=== PATIENT | female | born 1970 | race American Indian/Alaskan Native ===

== ENCOUNTER 2017-11-09 09:57 | Emergency (ER) | payer MEDICAID ==
[2017-11-09 09:58] VITALS: BMI 25.7
[2017-11-09 10:11] VITALS: RESP 20; O2SAT 99
--- NOTE | 2017-11-09 11:32 | C.PDOC ---
History Of Present Illness 47 y/o female with PMHx of hypertension presents to the ED complaining of right leg pain, ongoing for 1 year now. She also reports ecchymoses to the bilateral thighs, which she noticed yesterday upon waking up. Patient cannot recall any blunt trauma or mechanism of injury. She notes pain is radiating from the right hip down to the toes, which is unchanged for the past several months. Patient reports she was seen at [facility], and had negative x-rays. She is ambulatory and able to bear weight on both legs. Otherwise denies any changes in sensation, calf pain, chest pain, or SOB. Time Seen by Provider: 11/09/17 10:43 Chief Complaint (Nursing): Lower Extremity Problem/Injury History Per: Patient History/Exam Limitations: no limitations Onset/Duration Of Symptoms: Days Current Symptoms Are (Timing): Still Present Past Medical History Reviewed: Historical Data, Nursing Documentation, Vital Signs Vital Signs: Last Vital Signs Temp 98.6 F 11/09/17 11:51 Pulse 69 11/09/17 11:51 Resp 20 11/09/17 11:51 BP 117/79 11/09/17 11:51 Pulse Ox 99 11/09/17 11:52 - Medical History PMH: HTN, Hypercholesterolemia, Hyperlipidemia, Migraine Denies: Chronic Kidney Disease Surgical History: Cholecystectomy Other Surgeries: Partial hysterectomy, breast biopsy Family History: States: No Known Family Hx - Social History Hx Tobacco Use: Yes Hx Alcohol Use: No Hx Substance Use: No Review Of Systems Except As Marked, All Systems Reviewed And Found Negative. Cardiovascular: Negative for: Chest Pain Respiratory: Negative for: Shortness of Breath Musculoskeletal: Positive for: Leg Pain (right hip down to the toes). Negative for: Other (calf pain) Skin: Positive for: Bruising Neurological: Negative for: Weakness, Numbness, Incoordination Physical Exam - Physical Exam Appears: Non-toxic, No Acute Distress Skin: Warm, Dry, Ecchymosis (Bilateral symmetric ecchymoses to upper thighs that appear evenly shaped, mechanical in nature) Head: Atraumatic, Normacephalic Eye(s): bilateral: Normal Inspection Oral Mucosa: Moist Neck: Normal ROM Chest: Symmetrical, No Deformity Respiratory: No Accessory Muscle Use, Other (No acute respiratory distress) Extremity: Normal ROM (with FROM of both lower extremities, able to bear weight) , Tenderness (mild tenderness to the right hip), No Calf Tenderness, No Deformity, No Swelling Pulses: Left Dorsalis Pedis: Normal, Right Dorsalis Pedis: Normal Neurological/Psych: Oriented x3, Normal Speech, Other (No focal deficits) Gait: Steady ED Course And Treatment O2 Sat by Pulse Oximetry: 99 (RA) Pulse Ox Interpretation: Normal Medical Decision Making Medical Decision Making: Initial Impression: 47 y/o F with chronic right leg pain Time: 11:29 Initial Plan: --Motrin 600 mg PO --Tylenol 975 mg PO Patient is medically stable and requires no further treatment in the ER at this time. Counseled regarding diagnosis and treatment plan. Patient provided with referrals for two pain management specialists. Advised to follow up with pain management and/or PMD for further evaluation. Disposition Counseled Patient/Family Regarding: Need For Followup, Rx Given - Disposition Referrals: Lanie Villalba MD [Staff Provider] - Han Graham MD [Staff Provider] - Disposition: HOME/ ROUTINE Disposition Time: 11:36 Condition: STABLE Prescriptions: Ibuprofen [Motrin] 600 mg PO TID #15 tab Instructions: Chronic Pain Forms: [facility] (Latvian), General Discharge Instructions - POA Present On Arrival: None - Clinical Impression Clinical Impression: Chronic pain - Scribe Statement The provider has reviewed the documentation as recorded by the Ethan Umanzor Provider Attestation: All medical record entries made by the Kathyibfelipa were at my direction and personally dictated by me. I have reviewed the chart and agree that the record accurately reflects my personal performance of the history, physical exam, medical decision making, and the department course for this patient. I have also personally directed, reviewed, and agree with the discharge instructions and disposition.
[2017-11-09 11:52] VITALS: BP 117/79; PULSE 69; TEMP 98.6
== END 2017-11-09 11:52 | disposition home or self-care (01) ==
LOC: C.ER 09:57
DX: G89.29 Other chronic pain (principal)